=== PATIENT | male | born 1985 | race American Indian/Alaskan Native ===

== ENCOUNTER 2020-03-24 22:58 | Emergency (ER) | payer SELFPAY ==
[2020-03-24 23:10] VITALS: BP 135/79
== END 2020-03-25 06:23 | disposition left against medical advice (07) ==
LOC: ED 22:58
DX: R21 Rash and other nonspecific skin eruption (principal); Z53.21 Procedure and treatment not carried out due to patient leaving prior to being seen by health care provider